=== PATIENT | male | born 1950 | race African-American/Black ===

== ENCOUNTER 2018-12-09 06:43 | Inpatient (IN) | payer MEDICARE, MEDICAID ==
[~2018-12-09] VITALS: Ht 170.2 cm; Wt 68.5 kg
[2018-12-09] MEDS ORDERED: MORPHINE SULFATE 4 MG/ML CPJ (NOT FOR IM USE) IV STA (09:59)
[2018-12-09] MEDS ORDERED: SODIUM CHLORIDE 0.9% 1,000 ML IV ONE (09:59)
[2018-12-09] MEDS ORDERED: FAMOTIDINE 20MG/2ML VIAL IV STA (09:59)
[2018-12-09 10:16] LABS: CHLORIDE 103 mEq/L (98-107)
[2018-12-09 10:18] LABS: INR 1.2; PROTHROMBIN TIME 11.9 sec (9.1-11.1)
[2018-12-09 10:24] LABS: ETHANOL BLOOD < 10 mg/dL; HEMATOCRIT. 36.2 % (42.0-52.0); MEAN CORPUSCULAR VOLUME 90.6 fL (80.0-94.0); MEAN PLATELET VOLUME 6.3 fl (7.4-10.4); PLATELET 592 x1000/uL (130-400); RED CELL DISTRIBUTION WIDTH 14.1 % (11.6-14.6)
[2018-12-09] MEDS ORDERED: ONDANSETRON HCL 4MG/2ML INJ IV ONE (10:30)
[2018-12-09 11:49] LABS: CLARITY URINE CLOUDY (CLEAR); COLOR URINE YELLOW (YELLOW); KETONES URINE NEGATIVE (NEGATIVE); LEUKOCYTE ESTERASE URINE 3+ (NEGATIVE); NITRITE URINE NEGATIVE (NEGATIVE); OCCULT BLOOD URINE 2+ (NEGATIVE); PROTEIN URINE 1+ (NEGATIVE); SPECIFIC GRAVITY URINE 1.019 (1.005-1.030); UROBILINOGEN URINE 0.2 E.U./dL (0.2-1.0)
[2018-12-09 12:21] LABS: *AMPHETAMINES SCREEN URINE NEGATIVE (NEGATIVE)
[2018-12-09 12:22] LABS: *BARBITURATES SCREEN URINE NEGATIVE (NEGATIVE); *BENZODIAZEPINES SCREEN URINE NEGATIVE (NEGATIVE); *COCAINE SCREEN URINE NEGATIVE (NEGATIVE); CANNABINOID URINE SCREEN NEGATIVE (NEGATIVE); METHADONE URINE SCREEN NEGATIVE (NEGATIVE); OPIATES URINE SCREEN PRESUMTIVE POSITIVE (NEGATIVE); PHENCYCLIDINE URINE SCREEN NEGATIVE (NEGATIVE)
[2018-12-09 13:02] LABS: PLATELET ESTIMATE INCREASED
[2018-12-09] MEDS ORDERED: CEFTRIAXONE 1 G PREMIX 50 ML IV ONE (13:15)
[2018-12-09] MEDS ORDERED: SODIUM CHLORIDE 0.9% 1000ML BAG (SEPSIS BOLUS) IV ONE (13:15)
[2018-12-09 13:31] LABS: BG BASE EXCESS -2.1 mmol/L (-2.0-2.0); BG CARBOXYHEMOGLOBIN 0.3 % (0.5-1.5); BG DEOXYHEMOGLOBIN 13.8 % (0.0-5.0); BG FRACTION INSPIRED OXYGEN 21; BG METHEMOGLOBIN 0.2 % (0.0-1.5); BG OXYGEN SATURATION 86.1 % (92.0-98.5); BG OXYHEMOGLOBIN 85.7 % (94.0-97.0); BG PCO2 35.3 mmHg (35.0-45.0); BG PH 7.413 (7.350-7.450); BG PO2 54.4 mmHg (75.0-100.0); BG SAMPLE SITE RIGHT BRACHIAL; BG TOTAL HEMOGLOBIN 11.6 g/dL (12.0-18.0); BG VENT MODE ROOM AIR
[2018-12-09] MEDS ORDERED: NA PHOS,M-B/NA PHOS,DI-BA ENEMA 118ML PR PRN (14:15)
[2018-12-09] MEDS ORDERED: ACETAMINOPHEN 650MG/20.3ML UDC GT PRN (14:15)
[2018-12-09] MEDS ORDERED: CLONIDINE 0.1MG TABLET PO PRN (14:15)
[2018-12-09] MEDS ORDERED: IPRATROPIUM/ALBUTEROL 0.5-3(2.5)MG/3ML NEB INH PRN (14:15)
[2018-12-09] MEDS ORDERED: ACETAMINOPHEN 650MG SUPP PR PRN (14:15)
[2018-12-09] MEDS ORDERED: DOCUSATE SODIUM 100MG CAPSULE PO PRN (14:15)
[2018-12-09] MEDS ORDERED: DIPHENHYDRAMINE 50MG/ML VIAL IV PRN (14:15)
[2018-12-09] MEDS ORDERED: GUAIFENESIN 200MG/10ML SUGAR FREE UDC PO PRN (14:15)
[2018-12-09] MEDS ORDERED: HYDROCODONE/ACETAMINOPHEN 5/325MG TABLET PO PRN (14:15)
[2018-12-09] MEDS ORDERED: MAGNESIUM/ALUMINUM HYDROXIDE/SIMETHICONE 30ML UDC PO PRN ×2 (14:15→21:43)
[2018-12-09] MEDS ORDERED: SODIUM BICARBONATE 4% (2.4MEQ) 5ML VIAL IV ONE (14:59)
[2018-12-09] MEDS ORDERED: HYDROCODONE/ACETAMINOPHEN 10/325MG TABLET PO PRN (21:43)
[2018-12-10 08:04] LABS: BASOPHILS % 0.7 % (0.0-2.0); EOSINOPHILS % 0.5 % (0.0-5.0); HEMOGLOBIN. 12.1 g/dL (14.0-18.0); LYMPHOCYTES % 11.3 % (20.0-50.0); MEAN CORPUSCULAR HEMOGLOBIN 30.2 pg (28.0-32.0); MEAN CORPUSCULAR VOLUME 89.8 fL (80.0-94.0); MONOCYTES % 9.4 % (2.0-8.0); NEUTROPHILS % 78.1 % (40.0-76.0); PLATELET 501 x1000/uL (130-400); RED BLOOD CELL COUNT 4.02 mill/uL (4.7-6.1); RED CELL DISTRIBUTION WIDTH 13.7 % (11.6-14.6)
[2018-12-10 08:14] LABS: CHLORIDE 107 mEq/L (98-107)
[2018-12-10 08:21] LABS: LDL CHOLESTEROL 87 mg/dL (5-100)
[2018-12-10 08:22] LABS: HDL CHOLESTEROL 33 mg/dL (40-59)
[2018-12-10 10:00] VITALS: BP 106/76
[2018-12-10 10:39] VITALS: BP 106/76
[2018-12-10] MEDS: FUROSEMIDE 40MG/4ML VIAL IV SCH (11:24)
[2018-12-10] MEDS: PANTOPRAZOLE 40MG DR TABLET PO SCH (11:24)
[2018-12-10] MEDS: ENOXAPARIN 40MG/0.4ML SYR SUBCUT SCH (11:24)
[2018-12-10] MEDS: CEFTRIAXONE 1,000 MG in DEXTROSE 5% WATER 50 ML IV SCH (11:51)
[2018-12-10 12:10] VITALS: BP 116/85
[2018-12-10] MEDS: SODIUM CHLORIDE 0.9% INJ 3ML FLUSH IVF SCH ×2 (14:03→22:16)
[2018-12-10 15:46] VITALS: BP_SYST 122; BP_SYST 166; BP_DIAS 76; BP_DIAS 85
[2018-12-10 20:15] VITALS: BP 103/68
[2018-12-10 23:58] VITALS: BP 107/64
[2018-12-11] MEDS: IPRATROPIUM/ALBUTEROL 0.5-3(2.5)MG/3ML NEB INH SCH ×5 (02:22→21:38)
[2018-12-11 04:16] VITALS: BP 99/65
[2018-12-11] MEDS: PANTOPRAZOLE 40MG DR TABLET PO SCH (06:17)
[2018-12-11] MEDS: SODIUM CHLORIDE 0.9% INJ 3ML FLUSH IVF SCH ×3 (06:17→21:14)
[2018-12-11 07:29] LABS: HEMATOCRIT. 38.6 % (42.0-52.0); HEMOGLOBIN. 12.8 g/dL (14.0-18.0); MEAN CORPUSCULAR HEMOGLOBIN 29.6 pg (28.0-32.0); MEAN CORPUSCULAR VOLUME 89.3 fL (80.0-94.0); MEAN PLATELET VOLUME 6.3 fl (7.4-10.4); PLATELET 493 x1000/uL (130-400); RED BLOOD CELL COUNT 4.32 mill/uL (4.7-6.1); RED CELL DISTRIBUTION WIDTH 14.1 % (11.6-14.6)
[2018-12-11 08:00] VITALS: BP 95/62
[2018-12-11 08:00] LABS: CHLORIDE 100 mEq/L (98-107)
[2018-12-11] MEDS: ENOXAPARIN 40MG/0.4ML SYR SUBCUT SCH (09:00)
[2018-12-11] MEDS: FUROSEMIDE 40MG/4ML VIAL IV SCH (09:00)
[2018-12-11 11:31] LABS: PROSTRATE SPECIFIC AG TOTAL 7.49 ng/mL (0.0-4.0)
[2018-12-11 11:32] LABS: CARCINO EMBRYONIC ANTIGEN 12.6 ng/ml
[2018-12-11 12:00] VITALS: BP 109/68
[2018-12-11] MEDS: CEFTRIAXONE 1,000 MG in DEXTROSE 5% WATER 50 ML IV SCH (12:08)
[2018-12-11] MEDS ORDERED: SODIUM BICARBONATE 4% (2.4MEQ) 5ML VIAL IV ONE (14:20)
[2018-12-11] MEDS ORDERED: LIDOCAINE HCL 1% 20ML VIAL (Pyxis) INJ ONE (14:20)
[2018-12-11 14:55] VITALS: BP 102/67
[2018-12-11 16:00] VITALS: BP 102/67
[2018-12-11 18:18] LABS: PLATELET ESTIMATE INCREASED
[2018-12-11] MEDS: ACETAMINOPHEN 325MG TABLET PO PRN (18:23)
[2018-12-11 20:04] VITALS: BP 98/60
[2018-12-12] VITALS: BP 102/65
[2018-12-12] MEDS: ONDANSETRON HCL 4MG/2ML INJ IV PRN ×2 (00:32→16:52)
[2018-12-12] MEDS: ACETAMINOPHEN 325MG TABLET PO PRN (00:45)
[2018-12-12 04:00] VITALS: BP_SYST 86; BP_SYST 92; BP_DIAS 52; BP_DIAS 58
[2018-12-12] MEDS: PANTOPRAZOLE 40MG DR TABLET PO SCH (06:28)
[2018-12-12] MEDS: SODIUM CHLORIDE 0.9% INJ 3ML FLUSH IVF SCH ×3 (06:29→21:07)
[2018-12-12 08:00] VITALS: BP 85/51
[2018-12-12] MEDS: FUROSEMIDE 40MG/4ML VIAL IV SCH (09:00)
[2018-12-12] MEDS: IPRATROPIUM/ALBUTEROL 0.5-3(2.5)MG/3ML NEB INH SCH ×3 (09:15→20:40)
[2018-12-12 11:29] VITALS: BP 103/60
[2018-12-12] MEDS: CEFTRIAXONE 1,000 MG in DEXTROSE 5% WATER 50 ML IV SCH (13:14)
[2018-12-12 15:26] VITALS: BP 89/62
[2018-12-12 20:00] VITALS: BP 95/46
[2018-12-13] VITALS: BP 96/56
[2018-12-13] MEDS: IPRATROPIUM/ALBUTEROL 0.5-3(2.5)MG/3ML NEB INH SCH ×3 (01:55→14:38)
[2018-12-13 04:00] VITALS: BP 91/54
[2018-12-13] MEDS: SODIUM CHLORIDE 0.9% INJ 3ML FLUSH IVF SCH ×2 (05:46→15:12)
[2018-12-13 08:00] VITALS: BP 75/54
[2018-12-13] MEDS ORDERED: FAMOTIDINE 20MG TABLET PO SCH (09:00)
[2018-12-13] MEDS: FUROSEMIDE 40MG/4ML VIAL IV SCH (09:00)
[2018-12-13 10:30] LABS: BASOPHILS % 0.5 % (0.0-2.0); EOSINOPHILS % 0.2 % (0.0-5.0); HEMATOCRIT. 39.4 % (42.0-52.0); HEMOGLOBIN. 13.1 g/dL (14.0-18.0); LYMPHOCYTES % 10.5 % (20.0-50.0); MEAN CORPUSCULAR HEMOGLOBIN 29.7 pg (28.0-32.0); MEAN CORPUSCULAR VOLUME 89.7 fL (80.0-94.0); NEUTROPHILS % 78.8 % (40.0-76.0); PLATELET 409 x1000/uL (130-400)
[2018-12-13 10:54] LABS: CHLORIDE 98 mEq/L (98-107)
[2018-12-13 12:00] VITALS: BP 104/86
[2018-12-13] MEDS ORDERED: CEFTRIAXONE 1,000 MG in DEXTROSE 5% WATER 50 ML IV SCH (12:00)
[2018-12-13 16:00] VITALS: BP 105/71
[2018-12-13 16:38] VITALS: BP 105/71
== END 2018-12-13 19:02 | disposition home or self-care (01) | DRG 720 ==
LOC: ER 06:43 → EDBEDREQ 13:21 → ENRESERV 12-10 07:18 → 6WST 12-10 07:18
PROVIDERS: ADMIT Family Medicine; ATTEND Family Medicine
PROC: 0W9B3ZZ Drainage of Left Pleural Cavity, Percutaneous Approach (ICD-10-PCS; principal; 2018-12-09)
PROC: 0W9B30Z Drainage of Left Pleural Cavity with Drainage Device, Percutaneous Approach (ICD-10-PCS; 2018-12-11)
DX: A41.9 Sepsis, unspecified organism (principal); J96.01 Acute respiratory failure with hypoxia; E44.0 Moderate protein-calorie malnutrition; J90 Pleural effusion, not elsewhere classified; F20.9 Schizophrenia, unspecified; J44.9 Chronic obstructive pulmonary disease, unspecified; D64.9 Anemia, unspecified; F17.210 Nicotine dependence, cigarettes, uncomplicated; K21.9 Gastro-esophageal reflux disease without esophagitis; K76.89 Other specified diseases of liver; N13.6 Pyonephrosis; R73.9 Hyperglycemia, unspecified; Z71.9 Counseling, unspecified; Z68.23 Body mass index [BMI] 23.0-23.9, adult
CPT/HCPCS: 32555; 36415; 36600; 71045; 71250; 74176; 76770; 80048; 80061; 80305; 80320; 82375; 82378; 82805; 82962; 83605; 83880; 84153; 84484; 87015; 87045; 87427; 87449; 88108; 88312; 93005; 93306; 94640; 96374; 96375; 99291; C1893; J0696; J1650; J1940; J2270; J2405; J3490; J7030; J7040; J7060; J7620; G0103; G0480